=== PATIENT | female | born 2000 | race African-American/Black ===

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

== ENCOUNTER 2023-10-20 23:10 | Emergency (ER) | payer OTHER ==
[~2023-10-20] VITALS: Ht 157.5 cm; Wt 55.8 kg
[2023-10-20 23:31] VITALS: BP_SYST 113; PULSE 64; RESP 18; TEMP 98.8; O2SAT 100
== END 2023-10-21 00:38 | disposition left against medical advice (07) ==
LOC: SED 23:10
DX: R42 Dizziness and giddiness (principal); R53.1 Weakness; Z53.21 Procedure and treatment not carried out due to patient leaving prior to being seen by health care provider
CPT/HCPCS: 99281